=== PATIENT | female | born 2000 | race Caucasian/White ===

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

== ENCOUNTER 2020-01-31 23:47 | Outpatient (CLI) | payer MEDICAID, SELFPAY ==
[2020-01-31 23:57] VITALS: BMI 35.4
[2020-02-01 00:14] VITALS: BP 120/69; PULSE 90; TEMP 36.8
[2020-02-01 00:16] VITALS: PULSE 90; O2SAT 98
[2020-02-01 00:37] LABS: ROM Internal Control Test YES-OK TO RESULT pt. (Internal QC); ROM Patient Test Negative (Negative)
--- NOTE | 2020-02-03 11:43 | OB.TRI.PN ---
Progress Notes Date of Service: 01/31/20 Progress Note: at 38w2 presents for possible ROM. O: Reactive NST ROM plus negative A: Vaginal discharge P: 1) Labor instruction reviewed by nursing staff 2) D/C home, not in active labor and membranes intact Laboratory Studies: Laboratory Tests 02/01/20 Range/Units 00:10 Vag Amniotic Fld Detect Negative (Negative)
== END 2020-02-01 01:00 | disposition home or self-care (01) ==
PROVIDERS: Referring Provider Advanced Practice Midwife; Visit Provider Advanced Practice Midwife
DX: O26.893 Other specified pregnancy related conditions, third trimester (principal); N89.8 Other specified noninflammatory disorders of vagina; Z3A.38 38 weeks gestation of pregnancy
CPT/HCPCS: 59025; 59050; 84112; 99218; G0378

== ENCOUNTER 2020-02-15 13:35 | Inpatient (IN) | payer MEDICAID, SELFPAY ==
[2020-02-15] VITALS (28 sets, daily range): BP systolic 100–127; BP diastolic 51–68; PULSE 82–119; TEMP 37–37.5; O2SAT 87–100; BMI 35.8
--- NOTE | 2020-02-15 | SKTAG_PTH ---
PATIENT: NORMAN MALONE LOC: WP U#:[id number] AGE/SX: 19/F ROOM: WP009 RE02/15/[address]: Dr. 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 See comment. SJ:nadeem 02/17/20 COMMENT Immunohistochemistry ([id number]) for surrogate HPV marker (p16) supports the above diagnosis. Clinical correlation and appropriate follow up are necessary. Case has been reviewed in consultation with Dr. Wong who concurs with the above diagnosis. IDC:AM MICROSCOPIC DESCRIPTION Slides are reviewed. GROSS DESCRIPTION Received is one container labeled with the patient's name and not further designated. The specimen consists of multiple irregular fragments of light de soft tissue that in aggregate measure 2 x 0.7 x 0.2 cm. The specimen is totally submitted in one cassette. / AM:nadeem 02/16/20 TC:5 CPT: 76059
--- NOTE | 2020-02-15 | IMM_PTH ---
PATIENT: NORMAN MALONE LOC: WP U#:[id number] AGE/SX: 19/F ROOM: WP009 RE02/15/[address]: Dr. Bertha Izquierdo, MDDOB: 2000 BED: 1 DIS: 02/17/2020 SPEC #: [id number] RECD: 02/17/20 12:45 STATUS: ANTON IAN #: [id number] KELLY: 02/15/20 00:[address]: Bertha Izquierdo DEPT: IMMUNOHISTOCHEMISTRY RECD BY: Radha Reed ENTERED: 02/17/20 12:46 SP TYPE: IMMUNO OTHR DR: No Primary Care Phys Tissues: Vulva, NOS Procedures: p16 (initial) KI-67 (add) PHYSICIAN & INSTITUTION [place] [id number] SPECIMEN INFORMATION: Tissue Source: Vulva Clinical Info: Vulva papilloma Specimen Number: [id number] CPT code: 17966, 94047 METHODOLOGY: Deparaffinized sections of prefer/formalin-fixed tissue or PAP/DQ stained slides are incubated with monoclonal/polyclonal antibodies/oligonucleotide probes. Localization is made via biotin free immunoperoxidase method. Appropriate controls are performed and reacted as expected. Results on target cell population are indicated in the following table: RESULTS: ANTIBODY / CLONE RESULT P16 (E6H4) positive, focal and patchy Ki-67 (30-9) positive, low These tests were developed and their performance characteristics determined by [facility]. They may not have been cleared or approved by the U.S. Food and Drug Administration. The FDA has determined that such clearance or approval is not necessary. The above immunohistochemical/dualISH markers are ordered and reviewed by the Pathologist. INTERPRETATION: Vulva, biopsy: Fragments of squamous papilloma wit focal changes consistent with HPV cytopathic effects. SJ:nadeem 02/21/20
--- NOTE | 2020-02-15 12:20 | HP.PCM_ITS ---
History Date of Admission: 02/15/20 Final ZENAIDA: 02/13/20 Final ZENAIDA Source: US <20 weeks Gestational age: 40 Weeks and 2 Days History of this : This is a 19 year-old, G 1P0 @ 40.2 wks, IOL for non reassuring testing. Pt was seen in office today- FH was low- Growth us done with BPP which was 4/8- (-2 for breathing and -2 movement). Surgical History: Surgical History (Last Updated 03/25/19 @ 14:37 by Emily Jain) History of tonsillectomy and adenoidectomy Z98.890 Allergies cephalexin [From Keflex] Allergy (Verified 12/27/19 17:26) Swelling IV PAIN MEDICATION Adverse Reaction (Uncoded 12/27/19 17:26) Other MAKES ME FREAK OUT Home Medications: Home Medications Vits [Prenatabs FA] 1 tab PO DAILY 10/29/19 Acyclovir 400 mg PO TID 02/01/20 Smoking Status: Former smoker Alcohol: None History Past Pregnancies: Past Pregnancies Delivery Date Name GA/ Weeks Outcome Route Wt Infant Sex Labor Length Anesthesia Delivery Location Provider FOB Expected Delivery Method: Spontaneous Vaginal Review of Systems Eyes: Reports: Pain. Denies: Blurred vision HEENT: Denies: Head Aches Cardiovascular: Denies: Chest Pain Respiratory: Denies: Cough Gastrointestinal: Reports: Abdominal Pain - lower pelvic pain Genitourinary: Denies: Dysuria Psychiatric: Reports: Anxiety, Depression. 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
[2020-02-15] MEDS: Lactated Ringers 1,000 ML 50 ML IV (13:55)
[2020-02-15 14:07] LABS: Absolute Lymphocyte Count 2.48 X10^3/uL (0.83-4.51); Absolute Neutrophil Count 9.1 X10^3/uL (2.0-7.7); Basophil# 0.02 X10^3/uL; Basophil% 0.2 % (0-1); Eosinophil# 0.01 X10^3/uL; Eosinophils% 0.1 % (0-5); Hematocrit 34.9 % (37-47); Hemoglobin 10.9 g/dL (12.0-15.0); Lymphocyte # 2.48 X10^3/ul (4.0); Lymphocyte % 19.5 % (19-41); Mean Corp Hgb Conc 31.2 g/dL (32-36); Mean Corpuscular Hgb 25.7 pg (27.0-32.0); Mean Corpuscular Volume 82.3 fL (81-99); Monocyte# 1.05 X10^3/uL; Monocyte% 8.2 % (0-10); NRBC Flagged by Analyzer 0 % (0-5); Neutrophil # 9.13 X10^3/uL (2.7-7.7); Neutrophil % 71.6 % (47-70); Platelet Count 301 K/mm3 (150-450); RBC Distribution Width SD 40.9 fl (35.1-43.9); Red Blood Count 4.24 M/mm3 (4.2-5.4); White Blood Count 12.7 K/mm3 (4.4-11.0)
[2020-02-15] MEDS: Oxytocin 30 units/NS 500 ml 30 UNITS/500 ML IV.SOLN IV (14:32)
[2020-02-15 15:41] LABS: Probe Check PASS; Specimen Processing Control PASS
[2020-02-15] MEDS: fentaNYL 100 MCG/2 ML Ampul IV (17:13)
[2020-02-15] MEDS: Lactated Ringers 500 ML 999 ML IV (17:20)
--- NOTE | 2020-02-15 17:40 | PCM.PN.BLA ---
Progress Note pt seen at bedside, VE performed- 4-5//-2. AROM performed- clear. IUPC and IFM placed. Pt in pain- i spoke about epidural - pt accepted - anesthesia notified. STROKE Vital Signs/Narrative: Vital Signs Temp Pulse BP 02/15/20 15:37 99 110/68 02/15/20 15:04 100 111/68 02/15/20 14:02 91 122/68 H 02/15/20 14:00 98.6 F
[2020-02-15] MEDS: fentaNYL-bupivacaine (epidural) 100 ML BAG EPIDURAL (18:10)
[2020-02-15] MEDS: Oxytocin 30 units/NS 500 ml 30 UNITS/500 ML IV.SOLN 334 UNITS IV (20:55)
--- NOTE | 2020-02-15 21:29 | PCM.OPRPT ---
Vaginal Delivery Maternal Presentation: Medically Indicated Induction Method of Induction: Pitocin, Amniotomy Medical Reason for Induction: Compromise: list: - non reassuring BPP- 4/8 (-2 breathing, -2 tone) Amniotic Membrane Rupture Type: Artificial Amniotic Fluid Description: Clear Final ZENAIDA: 02/13/20 Gestational age: 40 Weeks and 2 Days Date of Procedure: 02/15/20 Pre-Operative Diagnosis: term gestation, non reassuring testing Post-Operative Diagnosis: same, live female infant Surgery/ Procedure Performed: Spontaneous Vaginal Delivery Type of Anesthesia: Epidural Description of Procedure: of live female infant born without complication. Loose Nuchal x 1. Placenta delivered intact. 2nd degree perineal repaired with 2-0 vicryl and 3-0 rapide. No complications. Presentation: Vertex Placental Delivery Description: Spontaneous Placenta Disposition: [facility] Cord Vessel Description: 3 Vessels Cord Entanglement: Around neck x 1, loose Estimated Blood Loss: 200 A gender: Female (1 minute): 8 (5 minute): 9 Laceration: None, Perineal Extension/lac - repaired with 2-0 vicryl and 3-0 rapide, 2nd degree Medications given after delivery: IV Pitocin Complications: None
[2020-02-15] MEDS: 0.9% Saline Lock 10 ML Syringe IV (23:22)
--- NOTE | 2020-02-15 23:54 | NURSING ---
This RN received bedside report from Magnus ARNOLD and taking over couplet care at this time.
[2020-02-16 03:05] VITALS: BP 115/68; PULSE 94; RESP 16; TEMP 36.8
[2020-02-16] MEDS: Ibuprofen 600 MG Tablet PO ×3 (03:06→19:44)
[2020-02-16 03:26] LABS: Pathology Skin Biopsy SEE PATHOLOGY REPORT
--- NOTE | 2020-02-16 07:55 | PCM.PN.OB ---
Subjective: pt seen at bedside, doing well. pt reports good pain control. lochia mild. breast feeding. - Physical Exam Vitals/I&O's: Vital Signs Temp Pulse Resp BP Pulse Ox 98.2 F 94 16 115/68 98 02/16/20 03:05 02/16/20 03:05 02/16/20 03:05 02/16/20 03:05 02/15/20 21:15 Oxygen Delivery Method Room Air Weight: 88.904 kg Body Mass Index (BMI) 35.8 Intake and Output for Last 24 Hours 02/14/20 02/15/20 02/16/20 23:59 23:59 23:59 Intake Total Output Total 395 / 395 Balance -395 / -395 General: Alert, Oriented x3 Abdomen: Soft, Non Tender, Non-Distended, - - fundus firm Laboratory Results 02/15/20 13:55: WBC 12.7 H, RBC 4.24, Hgb 10.9 L, Hct 34.9 L, MCV 82.3, MCH 25.7 L, MCHC 31.2 L, RDW Std Deviation 40.9, RDW Coeff of Jacques 14.0, Plt Count 301, MPV 11.0, Immature Gran % (Auto) 0.400, Neut % (Auto) 71.6 H, Lymph % (Auto) 19.5, [place] % (Auto) 8.2, Eos % (Auto) 0.1, Baso % (Auto) 0.2, Absolute Neuts (auto) 9.1 H, Absolute Lymphs (auto) 2.48, Nucleated RBC % 0 02/15/20 13:55: Blood Type A POSITIVE, Antibody Screen NEGATIVE 02/15/20 14:16: COVID-19 (MAGGIE) Negative Current Medications Acetaminophen (Tylenol) 1,000 mg PO Q8H PRN PRN PRN Reason: Pain Score 1-3/10 Bisacodyl (Dulcolax) 10 mg RECTAL UD PRN PRN Reason: If no BM Dibucaine (Dibucaine) 1 applic TOPICAL TID PRN PRN; Protocol PRN Reason: Discomfort Hydrocortisone (Hytone) 1 applic TOPICAL TID PRN PRN; Protocol PRN Reason: Discomfort Ibuprofen (Motrin) 600 mg PO Q6H PRN PRN PRN Reason: Pain Score 1-3/10 Last Admin: 02/16/20 03:06 Dose: 600 mg Documented by: Methylergonovine Maleate (Methergine) 0.2 mg IM X1 PRN PRN Reason: Excess bleeding/uterine atony Ondansetron HCl (Zofran) 4 mg IV Q4H PRN PRN PRN Reason: Nausea Oxycodone HCl (Oxyir) 5 - 10 mg PO Q4H PRN PRN PRN Reason: Pain Score 4-10/10 Senna/Docusate Sodium (Senokot-S, Ana Luisa-Colace) 1 - 2 tablet PO DAILY PRN PRN PRN Reason: Constipation Simethicone (Mylicon) 80 mg PO PCHS PRN PRN Reason: Indigestion/Stomach pain Sodium Chloride () 5 - 15 ml IV UD PRN PRN Reason: SALINE FLUSH Last Admin: 02/15/20 23:22 Dose: 10 ml Documented by: Medical Necessity - Tobacco Use Smoking Status: Former smoker Assessment/Plan All Active Problems (Last Reviewed 03/25/19 @ 14:37 by Emily Jain) Third trimester (Acute) PPD#1, doing well 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
[2020-02-16 08:50] VITALS: BP 106/52; PULSE 87; RESP 18; TEMP 37; O2SAT 97
[2020-02-16] MEDS: Senna/Docusate Sodium 1 Tablet PO (10:07)
[2020-02-16 12:30] VITALS: BP 123/62; PULSE 90; RESP 18; TEMP 36.3; O2SAT 95
[2020-02-16 16:56] VITALS: BP 106/55; PULSE 80; RESP 18; TEMP 36.3; O2SAT 98
[2020-02-16 19:35] VITALS: BP 103/62; PULSE 90; RESP 16; TEMP 36.4
[2020-02-17] MEDS: Acetaminophen 500 MG Tablet 1000 MG PO ×2 (00:06→08:06)
[2020-02-17 02:44] VITALS: BP 105/57; PULSE 65; RESP 16; TEMP 36.2
[2020-02-17] MEDS: Ibuprofen 600 MG Tablet PO (06:26)
[2020-02-17 07:50] VITALS: BP 115/67; PULSE 85; RESP 18; TEMP 36.4
--- NOTE | 2020-02-17 08:59 | DCINST_ITS ---
Discharge Diet: No Restrictions Discharge Activity: Return to Normal Activity, May not drive while taking narcotic pain medications., May Shower May resume sexual activity in: 4-6 weeks Additional Activity Instructions:: Nothing in the vagina for 4-6 weeks. You may return to work/school in 6 weeks. Call your doctor if your incision/area has: Continuous Slow Oozing, Sudden Increased Bleeding, Increased Pain/ Swelling, Increased Redness, Foul Smelling Discharge Additional Instructions: If you experience any of the following, contact your healthcare provider. * Bleeding that soaks a pad every hour for 2 hours * Fever 100.4 or higher * Unrelieved incision or abdominal pain * Swelling, redness, discharge or bleeding from your incision or episiotomy site * Your incision begins to separate * Problems urinating (including inability to urinate or burning while urinating). * Visual changes * Severe headache * Flu-like symptoms * Pain or redness in one of both of your breasts * Pain, warmth, tenderness or swelling in your legs, especially the calf area * Frequent nausea and vomiting * Symptoms of depression or anxiety If you experience any of the following, call 911 or go to the nearest Emergency Room. * Chest pain * Problems breathing * Seizure activity * Partial or complete paralysis of a body part, slurred speech, weakness or drooping of the face, or a sudden inability to walk or hold your balance Allergies/Adverse Reactions: Allergies cephalexin [From Keflex] Allergy (Verified 12/27/19 17:26) Swelling Gadolinium-MRI Contrast Medium [CONTRAST] Allergy (Verified 02/15/20 15:45) Shortness of breath IV PAIN MEDICATION Adverse Reaction (Uncoded 12/27/19 17:26) Other MAKES ME FREAK OUT Medications to take at Discharge Vits [Prenatabs FA ] 1 tab PO DAILY 10/29/19 Ibuprofen [Motrin] 600 mg PO Q6H PRN #60 tab 02/17/20 The following prescriptions were given: Ibuprofen [Motrin] 600 mg PO Q6H PRN #60 tab PRN Reason: Pain Transmission Status: Pending to [facility]30 Please Follow Up With: Bertha Izquierdo MD - [phone] When: Call to make an appointment with your doctor's office in 1-2 and 6 weeks or as needed Primary Care Physician: Care Physician,No Primary [Primary Care Provider] - Test Results: Test results from this visit will be discussed in further detail at your follow- up appointment, if applicable.
--- NOTE | 2020-02-17 09:02 | PCM.PN.OB ---
Subjective: Patient seen at bedside, doing well. Patient reports good pain control. Mild lochia. Breast-feeding going well. Patient is ready for DC home today. - Physical Exam Vitals/I&O's: Vital Signs Temp Pulse Resp BP Pulse Ox 97.5 F L 85 18 115/67 98 02/17/20 07:50 02/17/20 07:50 02/17/20 07:50 02/17/20 07:50 02/16/20 16:56 Oxygen Delivery Method Room Air Weight: 88.904 kg Body Mass Index (BMI) 35.8 Intake and Output for Last 24 Hours 02/15/20 02/16/20 02/17/20 23:59 23:59 23:59 Intake Total Output Total 395 / 395 Balance -395 / -395 General: Alert, Oriented x3 Abdomen: Soft, Non Tender, Non-Distended, - - fundus firm Current Medications Acetaminophen (Tylenol) 1,000 mg PO Q8H PRN PRN PRN Reason: Pain Score 1-3/10 Last Admin: 02/17/20 08:06 Dose: 1,000 mg Documented by: Bisacodyl (Dulcolax) 10 mg RECTAL UD PRN PRN Reason: If no BM Dibucaine (Dibucaine) 1 applic TOPICAL TID PRN PRN; Protocol PRN Reason: Discomfort Hydrocortisone (Hytone) 1 applic TOPICAL TID PRN PRN; Protocol PRN Reason: Discomfort Ibuprofen (Motrin) 600 mg PO Q6H PRN PRN PRN Reason: Pain Score 1-3/10 Last Admin: 02/17/20 06:26 Dose: 600 mg Documented by: Methylergonovine Maleate (Methergine) 0.2 mg IM X1 PRN PRN Reason: Excess bleeding/uterine atony Ondansetron HCl (Zofran) 4 mg IV Q4H PRN PRN PRN Reason: Nausea Oxycodone HCl (Oxyir) 5 - 10 mg PO Q4H PRN PRN PRN Reason: Pain Score 4-10/10 Senna/Docusate Sodium (Senokot-S, Ana Luisa-Colace) 1 - 2 tablet PO DAILY PRN PRN PRN Reason: Constipation Last Admin: 02/16/20 10:07 Dose: 1 tablet Documented by: Simethicone (Mylicon) 80 mg PO PCHS PRN PRN Reason: Indigestion/Stomach pain Sodium Chloride () 5 - 15 ml IV UD PRN PRN Reason: SALINE FLUSH Last Admin: 02/15/20 23:22 Dose: 10 ml Documented by: Medical Necessity - Tobacco Use Smoking Status: Former smoker Assessment/Plan All Active Problems (Last Reviewed 03/25/19 @ 14:37 by Emily Jain) Third trimester (Acute) PPD#2, doing well routine care pain mgmt dc home
[2020-02-17 13:50] VITALS: BP 121/68; PULSE 85; RESP 16; TEMP 36.3
== END 2020-02-17 14:15 | disposition home or self-care (01) | DRG 560 ==
PROVIDERS: Admitting Provider Obstetrics & Gynecology; Referring Provider Obstetrics & Gynecology; Visit Provider Obstetrics & Gynecology
DX: O76 Abnormality in fetal heart rate and rhythm complicating labor and delivery (principal); O69.81X0 Labor and delivery complicated by cord around neck, without compression, not applicable or unspecified; O70.1 Second degree perineal laceration during delivery; O98.32 Other infections with a predominantly sexual mode of transmission complicating childbirth; A63.0 Anogenital (venereal) warts; Z87.891 Personal history of nicotine dependence; Z3A.40 40 weeks gestation of pregnancy; Z37.0 Single live birth
CPT/HCPCS: 59025; 59050; 85025; 86850; 86900; 86901; 87635; 88304; 88305; 88341; 88342; 99218; G2023; J7120; A4216; G0378; U0003

== ENCOUNTER 2020-03-31 04:31 | Emergency (ER) | payer MEDICAID, SELFPAY ==
[2020-02-15 15:40] VITALS: BMI 35.8
[2020-03-31 04:33] VITALS: BP 115/81; PULSE 98; RESP 16; TEMP 36.7; O2SAT 95; BMI 31.8
--- NOTE | 2020-03-31 05:02 | ED.DCSUM_ITS ---
History of Present Illness Chief Complaint: Complaint Informant: Patient Onset: Days Context: Gradual Onset Timing: Continuous Narrative: Patient is a 19-year-old female that is 6 weeks presenting with UTI symptoms. Patient had an complaint of vaginal delivery. States about a week and half ago she developed UTI symptoms. She saw her PRESSURE TESTING TECHNICIAN, Dr. Sommer, who did a urinalysis and placed her on Augmentin. Patient took 2 full days Augmentin and then she started having generalized itching as well as throat itching. She stopped antibiotics and was switched to other medication. When she picked up the medication from the pharmacy she found it was not safe in breast-feeding so she did not take it. She states at that time her symptoms had improved. About 3 or 4 days ago her symptoms returned. Patient is having dysuria as well as feeling of urinary retention. Over the past 24 to 48 hours her symptoms worsen. She is now having pain in her right flank. She denies associated vaginal bleeding or discharge. She denies any fever, chills, nausea or vomiting. She has no other complaints at this time. Past Medical History - Allergies and Home Meds Allergies/Adverse Reactions: Allergies amoxicillin Allergy (Verified 03/31/20 04:33) Swelling cephalexin [From Keflex] Allergy (Verified 12/27/19 17:26) Swelling Gadolinium-MRI Contrast Medium [CONTRAST] Allergy (Verified 02/15/20 15:45) Shortness of breath IV PAIN MEDICATION Adverse Reaction (Uncoded 12/27/19 17:26) Other MAKES ME FREAK OUT Primary Care Physician: Care Physician,No Primary [Primary Care Provider] - Past Medical History: None Surgical History: noncontributory Smoking Status: Never smoker Review of Systems General: Denies: Chills, Fever, Sweats Cardiovascular: Denies: Chest pain, Palpitations Respiratory: Denies: Dyspnea, Cough, Dyspnea on exertion Gastrointestinal: Denies: Abdominal pain, Nausea, Vomiting, Diarrhea, Melena, Hematochezia Genitourinary: Reports: Dysuria, - - Urinary retention. Denies: Hematuria, Frequency Musculoskeletal: Denies: Back pain, Extremity Pain Skin: Denies: Rash, Wounds Neurological: Denies: Headache, Weakness, Numbness Psych: Denies: Depression, Anxiety Physical Exam Vital Signs/Narrative: Vital Signs Temp Pulse Resp BP Pulse Ox 03/31/20 04:33 98.0 F 98 16 115/81 H 95 Inital Vital Signs reviewed: Yes General: Well nourished, Well developed, No Acute Distress Head: Normocephalic, Atraumatic Eyes: Perrl, EOMI ENT: Moist mucous membranes, No rhinorrhea Neck: Supple, Nontender Cardiovascular: Regular rate, Regular rhythm, No murmurs Respiratory: No distress, CTA bilaterally, Chest nontender Abdomen: Soft, Nontender, Nondistended, Normal bowel sounds. Negative for: Guarding, Rebound tenderness Back: Nontender, Normal Inspection. Negative for: CVA tenderness Extremities: Nontender, No edema Skin: Normal color, No rash Neurological: Alert, Oriented x3, Cranial nerves II-XII grossly intact, Normal Strength, Normal Sensation Psychological: Normal affect, Normal Mood Diagnostic/Tx/Re-eval Laboratory Data 03/31/20 06:08 Urine Color Yellow Urine Clarity Clear Urine pH 5.0 Ur Specific [place] 1.020 Urine Protein Negative Urine Glucose (UA) Normal Urine Ketones 5 H Urine Occult Blood Negative Urine Nitrite Negative Urine Bilirubin Negative Urine Urobilinogen Normal Ur Leukocyte Esterase 25 H Urine RBC 0 SEEN Urine WBC 5-10 SEEN Ur Squamous Epith Cells 25-50 SEEN Urine Bacteria 0 SEEN Urine Mucus 0 SEEN - Medical Decision Making Patient is evaluated for dysuria. She is 6 weeks . She was recently treated for urinary tract infection and her symptoms have returned. Patient is otherwise well-appearing with normal vital signs. Her abdominal exam is benign. Urinalysis is contaminated but not really consistent with UTI. I did discuss the case with OB on-call, Dr. Concha Monroy, who reviewed the patient's most recent urine culture. She states it was actually a contaminated specimen with normal vaginal rahul. At this time we do not think she is actually having UTIs but could be having another cause of her dysuria. Patient will follow-up with the OB office today for further evaluation. Patient is agreeable this plan. Patient is counseled on signs and symptoms requiring return to the emergency room. Patient verbalizes agreement and understand this plan. Patient discharged home in stable and improved condition. ED Disposition - Plan for ED Patient: Disposition: Home or Assisted Living Diagnosis: Dysuria Instructions: ED Dysuria Uncertain Cause Referrals: Landry Monroy MD [STAFF PHYSICIAN] - Additional Instructions: Do not appear to have a urinary tract infection. Please follow-up today with your PRESSURE TESTING TECHNICIAN for further evaluation and to come up with a plan to treat your symptoms.
[2020-03-31 06:12] LABS: Color, Urine Yellow (Yellow); Glucose, Dipstick Normal (Normal); Ketone-Dipstick 5 mg/dl (Negative); Leukocyte Esterase-Dipstick 25 /ul (Negative); Nitrite-Dipstick Negative (Negative); Occult Blood-Urine Negative /ul (Negative); Protein-Dipstick Negative (Negative); Urine Bilirubin Dipstick Negative (Negative); Urine Clarity Clear (Clear); Urine Urobilinogen Normal (Normal)
[2020-03-31 06:13] LABS: Bacteria 0 SEEN /hpf (None Seen); Mucous, Urine 0 SEEN /hpf (<or=2+); Red Blood Cells-Urine 0 SEEN /hpf (0-5)
[2020-03-31 06:34] LABS: Squamous Epithelial Cells - UA 25-50 SEEN /hpf (5-10); White Blood Cells 5-10 SEEN /hpf (0-5)
[2020-03-31 07:55] VITALS: BP 122/63; PULSE 57; RESP 16; O2SAT 99
== END 2020-03-31 07:56 | disposition home or self-care (01) ==
PROVIDERS: Emergency Provider Emergency Medicine
DX: O90.89 Other complications of the puerperium, not elsewhere classified (principal); R30.0 Dysuria; R10.9 Unspecified abdominal pain; R33.9 Retention of urine, unspecified; Z87.440 Personal history of urinary (tract) infections
CPT/HCPCS: 81001; 87086; 99282

== ENCOUNTER 2020-08-26 22:21 | Emergency (ER) | payer MEDICAID, SELFPAY ==
[2020-08-26 22:22] VITALS: BP 122/81; PULSE 129; RESP 18; TEMP 37.7; O2SAT 97; BMI 30.2
--- NOTE | 2020-08-26 22:47 | ED.DCSUM_ITS ---
- ER Visit Summary Date of Service: 08/26/20 Chief Complaint: I think I have mastitis History of Present Illness: The patient is a 20 F who sees Libia Pierre. She does not have a primary care physician. She reports she has right breast pain that began today. It is a dull pain at rest. Is sharp with movement. 7 out of 10 at worst and 4-10 currently. Is also worsened by feeding. She reports it was relieved by hot shower. States that she had a fever to 102 degrees. She had nausea without vomiting. No diarrhea. Patient is breast-feeding and is 6 months . She is not had a period since she became . Patient reports that she was exposed to Covid 8 days ago by a [id number] who she lives by. She was around her for approximately an hour without a mask on. However, she denies any Covid symptoms. She does not have a cough or difficulty breathing. She denies any change in smell or taste. Physical Examination: Vitals: 99.8, 122/81, 129, 18, 97% room air which not hypoxic. General: Well-nourished and well-developed. Head: Normocephalic atraumatic. Neck: Supple, no lymphadenopathy. No JVD. Nontender. Cardiovascular: Tachycardic regular rhythm. No murmurs. Respiratory: No respiratory distress. Clear to auscultation bilaterally. Abdominal: Soft, nontender, nondistended, normal bowel sounds. No guarding, rebound, or peritoneal signs. Back: Nontender. Extremities: Nontender, no edema. Skin: Erythema just superior and medial to her breast. There is no induration or fluctuance to suggest abscess. Neurologic: Alert and oriented ?3. Cranial nerves II through XII are intact. Normal strength and sensation. Psych: Normal affect. Emergency Department Course and Treatment: Patient is allergic to amoxicillin and Keflex. She was treated with clindamycin and Tylenol. She feels well and does not want a Covid test obtained. Treatment Plan: Patient will be discharged on clindamycin. Instructed to continue to breast-feed. Follow-up with Libia Pierre in 3 to 5 days for another exam. Return to the emergency department for any worsening symptoms. Disposition: To home in improved and stable condition. Impression: 1. Mastitis on right. This note was generated with Dragon dictation software. It may contain incorrect words, spelling, and punctuation that were not noted in review of the chart prior to signing ED Disposition - Plan for ED Patient: Instructions: ED Mastitis Prescriptions: Clindamycin HCl 450 mg PO TID #63 capsule Referrals: Libia Pierre CNM [Certified Nurse Regional Tanker Truck Driver] - 3-5 Days
[2020-08-26] MEDS: Clindamycin HCl 150 MG Capsule 450 MG PO (22:53)
[2020-08-26] MEDS: Acetaminophen 500 MG Tablet 1000 MG PO (22:53)
== END 2020-08-26 23:00 | disposition home or self-care (01) ==
LOC: ED 22:56
PROVIDERS: Emergency Provider Emergency Medicine
DX: N61.0 Mastitis without abscess (principal); Z20.822 Contact with and (suspected) exposure to COVID-19; R11.0 Nausea
CPT/HCPCS: 99285

== ENCOUNTER 2020-12-17 10:40 | Emergency (ER) | payer MEDICAID, SELFPAY ==
[2020-12-17 10:41] VITALS: BP 117/74; PULSE 118; RESP 16; TEMP 37.2; O2SAT 96; BMI 32.2
--- NOTE | 2020-12-17 10:58 | EX.ED.DYSGE1 ---
HPI History of Present Illness Chief Complaint: Fever Informant: patient Onset/Context/Timing Onset: Today Quality: Shooting, aching Location: Right breast Worsened by: Movement Relieved by: Heating pad Narrative Narrative: Patient presents with redness and swelling to her right breast that became worse today. Patient states she is breast-feeding her child. Patient states that she tried to get in a hot shower to express her milk but was unable to do so. Patient noted some redness and pain to the area. Patient admits to subjective chills but denies any fevers. Patient admits to nausea but denies any vomiting. Patient states this feels similar to her prior episode of mastitis. Prior similar symptoms: Yes PFSH PFSH Home Medications clarithromycin 500 mg PO BID #20 tab 12/17/20 [Rx Last Taken Unknown] Allergy/AdvReac Type Severity Reaction Status Date / Time amoxicillin Allergy Swelling Verified 12/17/20 10:40 cephalexin [From Keflex] Allergy Swelling Verified 12/17/20 10:40 Gadolinium-MRI Contrast Allergy Shortness Verified 12/17/20 10:40 Medium of breath [CONTRAST] Family History (Updated 03/25/19 @ 14:39 by Emily Jain) Grandfather Diabetes Grandfather Heart disease Grandmother Diabetes Aunt Diabetes Surgical History History of tonsillectomy and adenoidectomy Social History number of children: 0 current occupational status: unemployed Smoking Status: Never smoker alcohol intake: current alcohol intake frequency: holidays/special occasions only substance use type: does not use what type of physical activity do you participate in: walking seatbelt use: always do you feel safe at home: Yes ROS ROS ED Constitutional Constitutional ED: Reports chills and subjective; Denies fever(s) Eyes Eyes: Denies blurry vision or change in vision ENT ENT ED: Denies rhinorrhea or sore throat Cardiovascular Cardiovascular: Denies chest pain or palpitations Respiratory/Chest Respiratory/Chest: Denies cough or dyspnea Gastrointestinal Gastrointestinal: Reports nausea; Denies vomiting Genitourinary Genitourinary ED: Denies dysuria or hematuria Musculoskeletal Musculoskeletal: Reports back pain; Denies neck pain Integumentary Reports rash; Denies abscess Neurologic Neurologic: Denies headache(s) or weakness Allergic/Immunologic Allergic/Immunologic ED: Denies mouth swelling or urticaria EXAM Physical Exam Const Vital Signs: 12/17/20 10:41 Temperature 98.9 F Temperature Source Temporal Pulse Rate 118 H Respiratory Rate 16 Blood Pressure 117/74 Blood Pressure Mean 88 Pulse Ox 96 Oxygen Delivery Method Room Air Positive well nourished and well developed General Appearance ED: well developed Neck supple and no JVD Chest Wall Chest Narrative: There is tenderness, erythema, and warmth over the right breast. There is no discharge or drainage. There is no induration. There is no fluctuance. Resp normal respiratory effort and clear to auscultation bilaterally Cardio regular rate and regular rhythm GI normal to inspection, nondistended, normoactive bowel sounds and non-tender Palpation: soft Extremity General Extremety ED: Negative for edema or tenderness General Extremity: Negative for edema Neuro oriented x3, CN's II-XII intact bilaterally and no sensory deficits noted Sensorium / Orientation: alert Motor Exam: strength 5/5 throughout MDM MDM MDM Narrative Medical decision making narrative: Patient was given a dose of clarithromycin here in the emergency department. Patient was given a prescription for clarithromycin. Patient was instructed to take this until it is gone. Patient was instructed to take Tylenol or ibuprofen as needed for any pain or fever. Patient was instructed to follow-up with her ROAD ROLLER ENGINEER in 5 to 7 days. Patient understood and was agreeable with the plan. All questions were answered. Discharge Plan Triage Chief Complaint: Fever ED Provider: Louis Kraus Dx/Rx/DC Orders Clinical Impression: Mastitis, acute Instructions: ED Mastitis Prescriptions: New clarithromycin 500 mg tablet 500 mg PO BID Qty: 20 RF: 0 Discontinued clindamycin HCl 150 MG capsule 450 mg PO TID Qty: 63 RF: 0 Primary Care Provider: Care Physician,No Primary Referrals: Bertha Izquierdo MD [STAFF PHYSICIAN] - 5-7 Days Care Physician,No Primary [Primary Care Provider] - Disposition Disposition: Home, self care Discharge Date/Time: 12/17/20 11:51
== END 2020-12-17 11:51 | disposition home or self-care (01) ==
LOC: ED 11:28
PROVIDERS: Emergency Provider Emergency Medicine
DX: N61.0 Mastitis without abscess (principal)
CPT/HCPCS: 99283

== ENCOUNTER 2021-02-14 17:52 | Emergency (ER) | payer MEDICAID, SELFPAY ==
[2021-02-14 17:54] VITALS: BP 114/67; PULSE 13; RESP 22; TEMP 37.7; O2SAT 96; BMI 31.1
--- NOTE | 2021-02-14 19:18 | EX.ED.DYSGE1 ---
HPI History of Present Illness Chief Complaint: Flank Pain Narrative Narrative: Patient presents with right-sided back pain that is worse with twisting and turning. She has no urinary symptoms. She has no abdominal pain. No fever or chills. This pain started a few days ago, no known injury although she does carry her 1-year-old daughter quite a bit. She does have pain getting out of bed or with any kind of movement of her back. Pain does not radiate to her legs. She has no bowel or bladder compromise. PFSH PFSH Home Medications clarithromycin 500 mg PO BID #20 tab 12/17/20 [Rx Last Taken Unknown] Allergy/AdvReac Type Severity Reaction Status Date / Time amoxicillin Allergy Swelling Verified 02/14/21 17:54 cephalexin [From Keflex] Allergy Swelling Verified 02/14/21 17:54 Gadolinium-MRI Contrast Allergy Shortness Verified 02/14/21 17:54 Medium of breath [CONTRAST] Family History (Updated 03/25/19 @ 14:39 by Emily Jain) Grandfather Diabetes Grandfather Heart disease Grandmother Diabetes Aunt Diabetes Surgical History History of tonsillectomy and adenoidectomy Social History number of children: 0 current occupational status: unemployed Smoking Status: Never smoker alcohol intake: current alcohol intake frequency: holidays/special occasions only substance use type: does not use what type of physical activity do you participate in: walking seatbelt use: always do you feel safe at home: Yes ROS ROS ED ROS Narrative Past medical history: Reviewed Medications: Reviewed Social history: Noncontributory Review of systems: All systems negative except as indicated General: No fever Neck: No neck pain Cardiovascular: No chest pain Respiratory: No shortness of breath or cough Gastrointestinal: No abdominal pain, nausea vomiting or diarrhea Genitourinary: No dysuria Musculoskeletal: Denies myalgias no difficulty with ambulation Back: Back pain as in HPI Skin: No rash Neurological: No memory loss, confusion or any focal weakness EXAM Physical Exam Narrative Exam Narrative: Physical exam General: Well nourished, Well developed, No Acute Distress Head: Normocephalic, Atraumatic Eyes: Conjunctiva not pale ENT: Moist mucous membranes Neck: Supple, Nontender, No lymphadenopathy Cardiovascular: Regular rate, Regular rhythm Respiratory: No distress, CTA bilaterally Abdomen: Soft, Nontender, Nondistended Back: Paraspinal back pain which is quite reproducible to palpation, I can reproduce it with twisting and turning. No pain at the CVA region. No spinal tenderness. Extremities: Nontender, No edema Skin: Normal color, No rash Neurological: Alert, Normal Strength, Normal Sensation Psychological: Normal affect Const Vital Signs: 02/14/21 17:54 Temperature 99.8 F H Temperature Source Temporal Pulse Rate 13 L Respiratory Rate 22 H Blood Pressure 114/67 Blood Pressure Mean 82 Pulse Ox 96 Oxygen Delivery Method Room Air MDM MDM MDM Narrative Medical decision making narrative: Patient has musculoskeletal back pain she is still nursing therefore we will not give medications, she is okay with that I taught her some stretching techniques otherwise I will discharge her with reassurance. Discharge Plan Triage Chief Complaint: Flank Pain ED Provider: Az Kemp Dx/Rx/DC Orders Clinical Impression: Back pain Instructions: Back Safety Bed, Back Exercises: Lower Back Rotation, Back Exercises: Leg Pull, Back Exercises: Lower Back Stretch Prescriptions: No Action clarithromycin 500 mg tablet 500 mg PO BID Qty: 20 RF: 0 Primary Care Provider: Care Physician,No Primary Referrals: Care Physician,No Primary [Primary Care Provider] - 2 Days Disposition Disposition: Home, Self Care
[2021-02-14 19:30] VITALS: BP 114/67; PULSE 73; RESP 22; TEMP 37.7; O2SAT 96
== END 2021-02-14 19:31 | disposition home or self-care (01) ==
LOC: ED 19:26
PROVIDERS: Emergency Provider Emergency Medicine
DX: M54.9 Dorsalgia, unspecified (principal); R10.9 Unspecified abdominal pain
CPT/HCPCS: 99282

== ENCOUNTER 2022-01-02 05:43 | Day surgery (SDC) | payer MEDICAID, SELFPAY ==
--- NOTE | 2021-12-31 12:11 | PCM.HP.BLA ---
History and Physical Date of Admission: 01/02/22 Pre-Op History and Physical ? HPI: The patient is a 21 year old female presenting for pre-operative visit. She is scheduled for laparoscopic bilateral salpignectomy, for desires sterilization on 01/02/22. Procedure discussed along with risks, benefits and complications. Other alternatives discussed for management. Consent form signed? Yes. ? ? PAST MEDICAL HISTORY PAST MEDICAL HISTORY Diagnosis Date ? Abnormal glucose in , antepartum 11/16/2019 ? 11/24/19 3 hr GTT normal. Valencia Low APRN.MEDICAL STAFF COORDINATOR 11/16/19 1 hr GCT 138. 3 Hr GTT ordered. Valencia Low APRN.MEDICAL STAFF COORDINATOR ? Allergic rhinitis ? ? Atypical squamous cells of undetermined significance (ASCUS) on Papanicolaou smear of cervix 06/29/2021 ? 06/29/21- HPV +, PAP ASCUS- Repeat testing in 1 year. Fiona Lund APRN.CNM ? Conversion disorder with motor symptom or deficit 12/30/2019 ? Herpes simplex virus (HSV) infection ? ? Herpes simplex vulvovaginitis 06/30/2019 ? 06/30/19: ON Acyclovir Bertah Izquierdo MD ? Mental disorder ? ? ? PAST SURGICAL HISTORY PAST SURGICAL HISTORY Procedure Laterality Date ? TONSILLECTOMY & ADENOIDECTOMY <AGE 12 ? CURRENT MEDICATIONS Current Outpatient Medications Medication Sig Dispense Refill ? OXcarbazepine (TRILEPTAL) 150 mg tablet ? LATUDA 40 mg tablet ? sertraline (ZOLOFT) 100 mg tablet Take 1 Tablet By Oral Route 1 time per day (Patient not taking: Reported on 12/25/2021) ? ? ? No current facility-administered medications for this visit. ? ? ALLERGIES: Amoxicillin and Keflex [Cephalexin] ? PERSONAL HISTORY: SOCIAL HISTORY Social History ? Tobacco Use ? Smoking status: Current Some Day Smoker ? ? Types: Cigarettes ? ? Last attempt to quit: 03/29/2019 ? ? Years since quittin.7 ? Smokeless tobacco: Never Used ? Tobacco comment: 2 smokers in the home Vaping Use ? Vaping Use: Never used Substance Use Topics ? Alcohol use: Yes ? ? Comment: seldom ? Drug use: Never ? FAMILY HISTORY: FAMILY HISTORY FAMILY HISTORY Problem Relation Age of Onset ? Mental illness Mother ? ? other (overdose) Mother ? ? Mental illness Father ? ? ? REVIEW OF SYMPTOMS: negative except as noted above PHYSICAL EXAMINATION: ? VITALS: Blood pressure 118/70, height 5' 3 (1.6 m), weight 189 lb (85.7 kg), last menstrual period 12/05/2021, currently . ? GENERAL: The patient is well nourished, well hydrated in no acute distress. , The patient is oriented to time, place, and person. NECK: full range of motion ? ? IMPRESSION: Desires sterilization declined long-acting reversible contraceptives ? PLAN: Laparoscopic bilateral salpingectomy ? Pt has been counseled on risks/benefits and alternatives of surgery including but not limited to anesthesia, bleeding, infection, injury to pelvic structures including bowel, bladder, ureters and vessels. Pt wishes to proceed with surgery at this time. Patient understands this is irreversible and permanent. I did discuss with patient other options that are long-acting reversible contraceptive. Patient declines. ? Pre and post op instructions reviewed ? Title 19 previously signed. ? ? I have reviewed and updated past medical and surgical history, medications and allergies Bertha Sommer MD
--- NOTE | 2022-01-02 | FALS_PTH ---
PATIENT: NORMAN MALONE LOC: [facility] [place] U#:[id number] AGE/SX: 21/ ROOM: RE01/02/[address]: Dr. Bertah Izquierdo, MDDOB: 2000 BED: DIS: 01/02/2022 SPEC #: [id number] RECD: 01/02/22 13:00 STATUS: ANTON IAN #: [id number] KELLY: 01/02/22 00:[address]: Bertha Izquierdo DEPT: SURGICAL PATHOLOGY RECD BY: Hector Infante ENTERED: 01/02/22 13:00 SP TYPE: FALL TUBES OTHR DR: Maryjane Primary Care Phys Tissues: Fallopian tube Procedures: Surgery Specimen Level II HEADER OPERATION: Laparoscopic salpingectomy PRE-OP DIAGNOSIS: Sterilization TISSUE SUBMITTED: Bilateral fallopian tubes MICROSCOPIC DIAGNOSIS Bilateral fallopian tubes, salpingectomy: Bilateral fallopian tubes, no pathologic diagnosis. SJ:nadeem 01/03/2022 MICROSCOPIC DESCRIPTION Slides are reviewed. GROSS DESCRIPTION Received in fixative is one container labeled with the patient's name and designated bilateral fallopian tubes. The specimen consists of bilateral fallopian tubes including fimbrial ends. One fallopian tube measures 7 cm in length and 1 cm in diameter. The second fallopian tube is received in two pieces and measures 7 cm in length and 1 cm in diameter. The fallopian tubes are not identified as right or left. Sections reveal unremarkable cut surfaces. Brake Adjuster sections are submitted in two cassettes as follows: 1 ? intact fallopian tube, 2 - fallopian tube received in two pieces. / JOSE:nadeem 01/02/2022 TC:4 CPT: 96581 x2
[2022-01-02 06:12] LABS: Internal QC Validated? YES +Cl - CLEAR BKGD; Pregnancy, Urine Negative Negative
[2022-01-02 06:23] VITALS: BP 115/72; PULSE 93; RESP 16; TEMP 36.8; O2SAT 100; BMI 33.9
[2022-01-02] MEDS: Lactated Ringers 1,000 ML 15 ML IV (06:36)
--- NOTE | 2022-01-02 07:15 | SUR.PREOP ---
Per Dr. Mayito Perry, ok to cancel PT/PTT, INR and Liver Function Test due to difficulty obtaining blood.
[2022-01-02 07:21] LABS: AST(SGOT) 18 U/L (15-37); Alanine Aminotransfer ALT/SGPT 21 U/L (13-56); Albumin, Serum 3.4 g/dL (3.2-5.0); Alkaline Phosphatase 67 U/L (45-117); Bilirubin, Direct 0.07 mg/dL (0.00-0.30); Globulin 4.1 g/dL (2.2-4.2); Protein, Total 7.5 g/dL (6.4-8.2)
--- NOTE | 2022-01-02 07:51 | EX.PCM.DISCH ---
Discharge Instructions Procedure Other Diet Discharge Diet: No restrictions Activity May resume sexual activity in: 2 weeks Lifting Restrictions: 20-25 lbs Dressing / Incision Call your doctor if your incision/area has: Continuous Slow Oozing, Sudden Increased Bleeding, Increased Pain/ Swelling, Increased Redness, Foul Smelling Discharge and Swelling at the incision site Call your doctor if you observe: Fever of 101 or Higher, Inability to urinate, Inability to have a bowel movement, Using more than 1 pad per hour and Uncontrolled pain Additional Dressing/Incision Instructions:: You have skin glue over your incision sites, do not pick off. You may shower and let the soap and water run over the incision sites and dab dry. Follow Up Care Please Follow Up With: Bertha Izquierdo MD When: 1-2 weeks post OP if you need an appointment please call [phone] Test Results: Test results from this visit will be discussed in further detail at your follow-up appointment, if applicable. Discharge Plan Admission Attending Provider: Bertha Izquierdo Primary Care Provider: Care Physician,No Primary Discharge Orders/Prescriptions Prescriptions: No Action oxcarbazepine 150 mg Tablet 150 mg PO BID RF: 0 ibuprofen 400 mg Tablet 400 mg PO Q6H PRN (Reason: Pain) RF: 0 pseudoephedrine HCl [Sudafed] 60 mg Tablet 60 mg PO Q6H PRN (Reason: Nasal Congestion) RF: 0 Latuda 40 mg Tablet 40 mg PO QPM RF: 0 Other Ambulatory Orders: COVID 19 AG RAPID (RN COLLECT) (Routine) Timeframe: [id number] Facility: [facility] - Location: Laboratory Ordered By: Dr. Mayito Perry
--- NOTE | 2022-01-02 07:52 | PCM.OPRPT ---
Problems Associated Problem List Diagnoses (1) Encounter for consultation for female sterilization: Report of Operation Date of Procedure: 01/02/22 Pre-Operative Diagnosis: Desire sterilization Post-Operative Diagnosis: same Surgery/Procedure Performed:: Laparoscopic bilateral salpingectomy Description of Surgical Findings:: Normal Tubes and ovaries Bilatearlly Surgeon: Bertha Izquierdo supervising producer: None Type of Anesthesia: General and Local Special Medications: 0.5% marcaine Specimen's removed: Bilateral tubes Estimated Blood Loss (mL): <5cc Fluids Replaced: 1000 Description of Procedure: after informed consent was obtained patient was taken to the operating room she was placed in supine position she was given anesthesia. She was then placed in the [facility] stirrups and she was prepped and draped in normal sterile fashion. Bladder was drained prior to the start of procedure. At this time attention was turned to the vaginal portion where weighted speculum placed at posterior fornix vagina single-tooth tenaculum was used to gently grasp the internal the cervix. uterus was gently sounded to approximately 8 cm. Uterine manipulator was placed without difficulty. Legs then placed in parallel with the abdomen the tenaculum and the weighted speculum were removed. 2 towel clamps were placed at level of umbilicus. Marcaine was injected infraumbilical and a small incision was made. The 5 mm trocar was placed under direct visualization. CO2 gas was used to insufflate the intra-abdominal cavity. Upon inspection no gross abnormalities appreciated- the uterus tubes and ovaries appeared to be normal. At this time then the LLQ and RLQ ports were placed First Marcaine was injected and small incision was made a knife and the 5 mm trocars were placed. At this time then tubes were traced back to the fimbriated ends. Enseal was used to coagulate and ligate along mesosalpinx bilaterally until tubes removed completely. Good hemostasis was appreciated. At this time procedure was deemed complete successful. The gas was desufflated on from the intra-abdominal cavity. The trochars were removed. Skin was closed using 4-0 Monocryl in a subcutaneous fashion. Dermabond glue was placed. Instrument lap and needle counts were correct ?2. The uterine manipulator was removed. Vaginal sweep was performed it was negative. There were no complications anticipated normal postoperative course for this patient. Grafts/Implants Used: none Procedure Start Time: 08:06 Procedure Stop Time: 08:26 Complications none Admit VTE Documentation VTE Present on Admission: Yes VTE Mechan Device Prophylaxis: SCD's VTE Pharm Prophylaxis ordered?: No Reason prophylaxis not ordered:: Procedure Not Indicated
[2022-01-02] MEDS: Bupivacaine Mpf 0.5% 30 ML VIAL (08:06)
[2022-01-02 08:52] VITALS: BP 115/72; BP 127/85; PULSE 82; RESP 14; TEMP 36.4; O2SAT 96
[2022-01-02 09:00] VITALS: BP 115/72; BP 117/75; PULSE 79; RESP 14; O2SAT 99
[2022-01-02 09:15] VITALS: BP 115/72; BP 123/79; PULSE 90; RESP 14; O2SAT 99
[2022-01-02 09:30] VITALS: BP 104/67; BP 115/72; PULSE 72; RESP 14; O2SAT 100
[2022-01-02] MEDS: HYDROcodone Bitartrate/Apap 5/325 Tablet PO (10:45)
[2022-01-02 11:15] VITALS: BP 109/63; BP 115/72; PULSE 83; RESP 16; TEMP 36.4; O2SAT 99
== END 2022-01-02 11:35 | disposition home or self-care (01) ==
LOC: SDC 05:44 → AC 05:45
PROVIDERS: Anesthesiology; Referring Provider Obstetrics & Gynecology; Visit Provider Obstetrics & Gynecology
PROC: (CPT 58661; principal; 2022-01-02 07:15)
DX: Z30.2 Encounter for sterilization (principal); F32.A Depression, unspecified; F17.210 Nicotine dependence, cigarettes, uncomplicated; Z79.899 Other long term (current) drug therapy
CPT/HCPCS: 58661; 00840; 80076; 81025; 88302; J7120; C1760; J2405